=== PATIENT | male | born 1985 | race Caucasian/White ===

== ENCOUNTER 2022-06-16 19:31 | Inpatient (IN) | payer OTHER ==
[~2022-06-16] VITALS: Ht 180.3 cm; Wt 86.2 kg
[~2022-06-16 19:31] MED LIST: INSU-1163 SQ; LEVEMIR SUBQ
[2022-06-16 20:20] VITALS: BP 130/73
--- NOTE | 2022-06-16 20:23 | NUR ---
TO LOBBY A/W BED VIA W/C
--- NOTE | 2022-06-16 20:52 | NUR ---
AKIL Cortez examining patient.
--- NOTE | 2022-06-16 20:55 | NUR ---
PT TO BED 08 VIA W/C WITH AKIL SPIVEY
--- NOTE | 2022-06-16 21:03 | NUR ---
Dr. Gomez examining patient.
[2022-06-16] MEDS ORDERED: ONDANSETRON 4 MG/2 ML VIAL IVP ONE (21:05)
[2022-06-16] MEDS ORDERED: NACL 0.9% 1,000 ML IV ONE (21:10)
--- NOTE | 2022-06-16 21:13 | NUR ---
X-Ray at bedside.
--- NOTE | 2022-06-16 21:18 | NUR ---
COVID-19 swab collected and sent to lab.
[2022-06-16 21:24] LABS: BASOPHILS % (AUTO) 0.2 % (0.0-2.0); HEMATOCRIT 22.9 % (36-52); LYMPHOCYTES # (AUTO) 0.7 K/uL (2.0-11.5); LYMPHOCYTES % (AUTO) 5.4 % (20.5-51.1); MEAN CORPUSCULAR HEMOGLOBIN 27 pg (27-31); MEAN CORPUSCULAR HGB CONC 30 g/dL (33-37); MEAN CORPUSCULAR VOLUME 87.2 fL (80-94); MONOCYTES # (AUTO) 0.5 K/uL (0.8-1.0); NEUTROPHILS # (AUTO) 11.9 K/uL (1.8-7.7); NEUTROPHILS % (AUTO) 90.4 % (42.2-75.2); PLATELET COUNT (AUTO) 231 K/uL (140-450); RED BLOOD CELL COUNT(AUTO) 2.62 MIL/uL (4.20-6.10); RED CELL DISTRIBUTION WIDTH 16.7 % (11.6-13.7); WHITE BLOOD COUNT (AUTO) 13.2 K/uL (4.8-10.8)
[2022-06-16] MEDS ORDERED: MAG SULF 2000 MG/WATER PREMIX 50 ML IV PRN (21:30)
[2022-06-16] MEDS ORDERED: VANCOMYCIN PER PHARMACY MC PRN (21:30)
[2022-06-16] MEDS ORDERED: ZOLPIDEM 10 MG TAB PO PRN (21:30)
[2022-06-16] MEDS ORDERED: ONDANSETRON 4 MG/2 ML VIAL IVP PRN (21:30)
[2022-06-16] MEDS ORDERED: ACETAMINOPHEN 325 MG TAB PO PRN (21:30)
[2022-06-16] MEDS ORDERED: LORazepam 2 MG/ML VIAL IVP PRN (21:30)
[2022-06-16] MEDS ORDERED: DOCUSATE SODIUM 100 MG GELCAP PO PRN (21:30)
[2022-06-16] MEDS ORDERED: POTASSIUM CHLORIDE 10 MEQ TABER PO PRN (21:30)
[2022-06-16] MEDS ORDERED: DEXTROSE 50% 50 ML SYR IVP PRN (21:30)
--- NOTE | 2022-06-16 21:41 | NUR ---
Patient taken to CT scan via gurney.
[2022-06-16 21:43] LABS: ANION GAP 16.3 (8-16); CARBON DIOXIDE 25.3 mmol/L (21-32); CREATININE 2.4 mg/dL (0.6-1.3); POTASSIUM 5.6 mmol/L (3.5-5.1); TOTAL BILIRUBIN 0.4 mg/dL (0.0-1.0)
--- NOTE | 2022-06-16 21:50 | NUR ---
Patient returned back from CT scan.
[2022-06-16 21:56] LABS: PROTHROMBIN TIME 11.5 secs (10.8-13.4)
--- NOTE | 2022-06-16 21:59 | NUR ---
photos taken of alexander
[2022-06-16] MEDS: INSULIN LISPRO SLIDING SCALE 100 UNITS/ML VIAL SUBQ PRN (22:09)
[2022-06-16] MEDS ORDERED: PIPERACILLIN/TAZOBACTAM 2.25 GM in DEXTROSE 5% 50 ML IV SCH (22:10)
--- NOTE | 2022-06-16 22:43 | NUR ---
Patient will be admitted to care of Dr. Mckeon. Admited to telemetry. Will go to room 125B. Belongings list completed. Report to TYLER Aguirre. pictures taken however unable to print due to printer error.
[2022-06-16] MEDS ORDERED: VANCOMYCIN 1GM/DEXT 5% PREMIX 200 ML IV SCH (23:00)
--- NOTE | 2022-06-16 23:10 | NUR ---
BS 594, after given Humulog 18 units SUQ.
--- NOTE | 2022-06-16 23:20 | NUR ---
RECEIVED PT FROM ER ADMITTED TO 125B VIA [facility]. AWAKE, ALERT X 2 AND VERBALLY RESPONSIVE. PT IS ADMITTED WITH CHIEF COMPLAINTS OF 5 DAYS PROGRESSIVE WORSENING, NON RADIATING DIFFUSE OF RIGHT FOOT PAIN WITH REDNESS, SWELLING AND DISCHARGE. PT IS WITH DIAGNOSIS OF DIABETIC ULCER. NO KNOWN ALLERGY AND IS A FULL CODE. DIET IS CONSISTENT CARB 60GM WITH GLUCOSE CHECK ACHS. IV SITE IS ON RIGHT AC 20G AND IS ON SALINE LOCK.
--- NOTE | 2022-06-16 23:29 | NUR ---
Several attempted to print photos via printer in ER and ICU, not success.
[2022-06-17] VITALS (8 sets, daily range): BP systolic 107–140; BP diastolic 71–92
--- NOTE | 2022-06-17 00:09 | NUR ---
photos printed and given to admit nurse
--- NOTE | 2022-06-17 00:15 | NUR ---
CHECKED BLOOD SUGAR = 502, REPORTED TO DR. ROBERSON, NO NEW ORDER.
--- NOTE | 2022-06-17 02:55 | NUR ---
CARRY ORDER FOR BLOOD TRANSFUSION. PRE BLOOD TRANSFUSION, CHECKED V/S: BP115/63, T98.2, HR102, R18. PT DENIES OF PAIN.
--- NOTE | 2022-06-17 03:10 | NUR ---
BLOOD TRANSFUSION STARTS, PT IS AWAKE AND ALERT. PT NOTED MOANING BUT DENIED OF HAVING ANY PAIN, PT REFUSE ANY PAIN MEDICATION OFFERED.
--- NOTE | 2022-06-17 03:40 | NUR ---
BLOOD SUGAR CHECKED = 501. DR. ROBERSNO ORDER TO ADMINISTER ADDITIONAL 10 UNITS OF HUMOLOG INSULIN. ORDER CARRY OUT.
[2022-06-17] MEDS ORDERED: PIPERACILLIN/TAZOBACTAM 2.25 GM VIAL IV ONE ×2 (04:39→21:40)
--- NOTE | 2022-06-17 05:25 | NUR ---
BLOOD TRANSFUSION COMPLETED AT 0525, NO SIDE REACTION.
[2022-06-17] MEDS: PIPERACILLIN/TAZOBACTAM 2.25 GM in DEXTROSE 5% 50 ML IV SCH ×3 (05:43→21:43)
[2022-06-17] MEDS: BLOOD GLUCOSE MONITORING 1 DEV DEV FS SCH ×4 (06:59→20:57)
--- NOTE | 2022-06-17 07:00 | NUR ---
BLOOD SUGAR CHECKED = 452 =18 UNITS HUMOLOG INSULIN ADMINISTERED.
[2022-06-17] MEDS: INSULIN LISPRO SLIDING SCALE 100 UNITS/ML VIAL SUBQ PRN ×4 (07:33→20:57)
--- NOTE | 2022-06-17 07:36 | NUR ---
got report from the night nurse, pt sleeping, no sob.[email or web address]
[2022-06-17] MEDS ORDERED: SODIUM ZIRCONIUM CYCLOSILICATE 10 GM POWD.PACK PO SCH (07:45)
[2022-06-17] MEDS: NACL 0.9% 1,000 ML IV SCH ×3 (07:54→20:50)
[2022-06-17 07:58] LABS: BASOPHILS % (AUTO) 0.2 % (0.0-2.0); EOSINOPHILS # (AUTO) 0.1 K/uL (0-0.4); EOSINOPHILS % (AUTO) 0.6 % (0.0-4.0); HEMATOCRIT 21.5 % (36-52); LYMPHOCYTES # (AUTO) 0.9 K/uL (2.0-11.5); LYMPHOCYTES % (AUTO) 8.1 % (20.5-51.1); MEAN CORPUSCULAR HEMOGLOBIN 27 pg (27-31); MEAN CORPUSCULAR HGB CONC 32 g/dL (33-37); MEAN CORPUSCULAR VOLUME 83.2 fL (80-94); MONOCYTES # (AUTO) 1.3 K/uL (0.8-1.0); MONOCYTES % (AUTO) 11.6 % (1.7-9.3); NEUTROPHILS # (AUTO) 8.9 K/uL (1.8-7.7); NEUTROPHILS % (AUTO) 79.5 % (42.2-75.2); PLATELET COUNT (AUTO) 173 K/uL (140-450); RED BLOOD CELL COUNT(AUTO) 2.59 MIL/uL (4.20-6.10); RED CELL DISTRIBUTION WIDTH 16.1 % (11.6-13.7); WHITE BLOOD COUNT (AUTO) 11.2 K/uL (4.8-10.8)
[2022-06-17] MEDS: INSULIN LANTUS 100 UNITS/ML 10 ML VIAL SUBQ SCH (08:03)
[2022-06-17 08:10] LABS: ANION GAP 8.9 (8-16); CARBON DIOXIDE 30.8 mmol/L (21-32); CREATININE 1.9 mg/dL (0.6-1.3); POTASSIUM 4.7 mmol/L (3.5-5.1)
[2022-06-17 08:16] LABS: HEMOGLOBIN 6.9 g/dL (12.0-18.0)
[2022-06-17 08:20] LABS: BASOPHILS % (AUTO) 0.2 % (0.0-2.0); EOSINOPHILS % (AUTO) 0.4 % (0.0-4.0); HEMATOCRIT 21.5 % (36-52); HEMOGLOBIN 7.1 g/dL (12.0-18.0); LYMPHOCYTES # (AUTO) 0.8 K/uL (2.0-11.5); LYMPHOCYTES % (AUTO) 8.4 % (20.5-51.1); MEAN CORPUSCULAR HEMOGLOBIN 27 pg (27-31); MEAN CORPUSCULAR HGB CONC 33 g/dL (33-37); MEAN CORPUSCULAR VOLUME 83.4 fL (80-94); MONOCYTES # (AUTO) 0.6 K/uL (0.8-1.0); MONOCYTES % (AUTO) 6.1 % (1.7-9.3); NEUTROPHILS # (AUTO) 8.4 K/uL (1.8-7.7); NEUTROPHILS % (AUTO) 84.9 % (42.2-75.2); PLATELET COUNT (AUTO) 183 K/uL (140-450); RED BLOOD CELL COUNT(AUTO) 2.58 MIL/uL (4.20-6.10); RED CELL DISTRIBUTION WIDTH 15.9 % (11.6-13.7); WHITE BLOOD COUNT (AUTO) 9.9 K/uL (4.8-10.8)
[2022-06-17 08:25] LABS: ANION GAP 8.4 (8-16); CARBON DIOXIDE 31.2 mmol/L (21-32); POTASSIUM 4.6 mmol/L (3.5-5.1)
--- NOTE | 2022-06-17 09:13 | NUR ---
PATIENT HAS BEEN SCREENED AND CATEGORIZED HIGH NUTRITION RISK. PATIENT WILL BE SEEN WITHIN 1-2 DAYS OF ADMISSION. FNS CONSULT RECEIVED FOR MARGY 12 OR LOWER ON 06/17/22. REVIEWED BY MCKAYLA PEDROZA RD
[2022-06-17] MEDS ORDERED: VANCOMYCIN 1.25GM PREMIX 250 ML IV SCH (10:00)
[2022-06-17] MEDS ORDERED: VANCOMYCIN HCL 1.25 GM in DEXTROSE 5% 250 ML IV SCH (10:00)
--- NOTE | 2022-06-17 11:25 | NUR ---
BLOOD SUGAR UNABLE TO CHART IN E-MAR, NOW PT BLOOD SUGAR IS 347 WILL COVER ACCORDING TO THE SLIDING SCALE.[email or web address]
--- NOTE | 2022-06-17 11:27 | NUR ---
FOR THE BS OF 347 COVERED PT WITH 8 UNIT OF HUMOLOG /[email or web address]
[2022-06-17] MEDS ORDERED: BLOOD GLUCOSE MONITORING 1 DEV DEV FS SCH (13:00)
[2022-06-17] MEDS ORDERED: CLINDAMYCIN 900MG/D5W PM 50 ML IV SCH (13:00)
--- NOTE | 2022-06-17 13:19 | NUR ---
DR. LYNNE IN TO SEE PT, ORDERED CONSENT FOR SURGERY OF RIGHT LOWER EXTREMITY, NOTIFIED DR. ROBERSON AND DR. DREW FOR PENDING CARDIAC CLEARANCE. CONSENT IS SIGNED.
--- NOTE | 2022-06-17 14:58 | NUR ---
PT LEFT TO OR, ALERT.WILL BE GOING TO ICU FROM THE SURGERY.[email or web address]
[2022-06-17] MEDS ORDERED: HYDROmorphone 1 MG/ML AMP IVP PRN (15:05)
[2022-06-17] MEDS ORDERED: ONDANSETRON 4 MG/2 ML VIAL IVP PRN (15:05)
[2022-06-17] MEDS ORDERED: BUPIVACAINE-MPF 0.5% 30 ML VIAL INJ ONE (15:08)
[2022-06-17] MEDS ORDERED: fentaNYL citrate 0.05 MG/ML VIAL ONE (15:09)
--- NOTE | 2022-06-17 15:12 | NUR ---
06/17/22 RD INITIAL ASSESSMENT COMPLETED PLEASE REFER TO NUTRITION ASSESSMENT UNDER CARE ACTIVITY FOR ESTIMATED NUTRITIONAL NEEDS. 1. MONITOR NPO STATUS 2. WHEN/IF MEDICALLY APPROPRIATE, RECOMMEND [id number] DIET WITH PROSOURCE BID (PROVIDES 120 KCAL AND 30 GM PROTEIN DAILY) FOR WOUND SUPPORT 3. MONITOR NUTRITION RELATED LAB VALUES 4. RD TO FOLLOW-UP 3-5 DAYS, MODERATE RISK REVIEWED BY MCKAYLA PEDROZA RD
[2022-06-17] MEDS ORDERED: LIDOCAINE 1% 500 MG/50 ML VIAL ONE (15:21)
[2022-06-17] MEDS ORDERED: DESFLURANE 240 ML BTL INH ONE (15:28)
[2022-06-17] MEDS ORDERED: HYDROGEN PEROXIDE 3% 240 ML BTL TP ONE (15:32)
[2022-06-17] MEDS ORDERED: PROPOFOL 200 MG/20 ML VIAL IV ONE (15:45)
[2022-06-17] MEDS ORDERED: ONDANSETRON 4 MG/2 ML VIAL ONE (15:45)
[2022-06-17] MEDS ORDERED: HYDROmorphone PFS 2 MG/ML SYR ONE (15:48)
--- NOTE | 2022-06-17 16:50 | NUR ---
RECEIVED REPORT FROM JOEY SCOTT. PT TRANSFERRED TO ICU 7 FROM OR. S/P RIGHT FOOT AMPUTATION, DRESSING CLEAN INTACT. PT AROUSABLE, AOX4, FOLLOWS COMMANDS. NO C/O PAIN, NO SOB ON 2L, SATURATING WELL
--- NOTE | 2022-06-17 17:25 | NUR ---
1 UNIT PRBC TRANSFUSION STARTED
[2022-06-17 18:04] LABS: BARBITURATE, URINE NEGATIVE ng/ml (NEG <=200); BENZODIAZEPINE, URINE NEGATIVE ng/mL (NEG <=200); CANNABINOID, URINE NEGATIVE ng/mL (NEG <=50); COCAINE, URINE NEGATIVE ng/mL (NEG <=300); OPIATE, URINE NEGATIVE ng/mL (NEG <=2000); PHENCYCLIDINE SCREEN,URINE NEGATIVE ng/mL (NEG <=25)
--- NOTE | 2022-06-17 19:03 | NUR ---
REPORT GIVEN TO JOHNSON SCOTT. TRANSFUSION ONGOING, NO ADVERSE REACTIONS NOTED
[2022-06-17 19:10] LABS: ANION GAP 7.6 (8-16); CARBON DIOXIDE 30.4 mmol/L (21-32)
[2022-06-17 19:29] LABS: CREATININE 1.6 mg/dL (0.6-1.3)
[2022-06-17] MEDS: MORPHINE SULFATE 2 MG/ML SYR IVP PRN (19:41)
[2022-06-17 22:47] LABS: CARBON DIOXIDE 30.8 mmol/L (21-32); CREATININE 1.5 mg/dL (0.6-1.3); POTASSIUM 3.8 mmol/L (3.5-5.1)
--- NOTE | 2022-06-17 23:50 | NUR ---
RECEIVED REPORT FROM NURSE ORNELAS FOR CONTINUITY OF CARE. PT IS AAOX4. PT IS NOT NC 2L NOT IN ANY DISTRESS. PT IS S/P RIGHT FOOT AMPUTATION. PT HAS BILATERAL IV ON AC 20 GAUGE. RUNNING NS 150 ON LEFT AC. SAFETY PRECAUTIONS TAKEN. CALL LIGHT WITHIN REACH. WILL CONTINUE TO MONITOR.
[2022-06-18] VITALS: BP 134/85
[2022-06-18] MEDS: MORPHINE SULFATE 2 MG/ML SYR IVP PRN ×5 (00:42→19:58)
[2022-06-18 01:02] LABS: ANION GAP 5.7 (8-16); CARBON DIOXIDE 32.1 mmol/L (21-32); CREATININE 1.4 mg/dL (0.6-1.3); POTASSIUM 3.8 mmol/L (3.5-5.1)
[2022-06-18] MEDS: NACL 0.9% 1,000 ML IV SCH ×4 (03:35→23:35)
[2022-06-18 04:00] VITALS: BP 136/91
[2022-06-18] MEDS ORDERED: PIPERACILLIN/TAZOBACTAM 2.25 GM VIAL IV ONE (04:34)
[2022-06-18] MEDS: PIPERACILLIN/TAZOBACTAM 2.25 GM in DEXTROSE 5% 50 ML IV SCH ×3 (04:44→20:37)
--- NOTE | 2022-06-18 04:45 | NUR ---
SCHEDULE MEDICATION GIVEN. NO ADVERSE REACTION NOTED. WILL CONTINUE TO MONITOR THE PT.
[2022-06-18 05:50] LABS: CARBON DIOXIDE 29.9 mmol/L (21-32); CREATININE 1.3 mg/dL (0.6-1.3); POTASSIUM 3.9 mmol/L (3.5-5.1)
[2022-06-18 05:51] LABS: CARBON DIOXIDE 28.9 mmol/L (21-32); CREATININE 1.3 mg/dL (0.6-1.3); POTASSIUM 3.9 mmol/L (3.5-5.1)
[2022-06-18 05:54] LABS: BASOPHILS # (AUTO) 0.1 K/uL (0.00-0.22); BASOPHILS % (AUTO) 0.6 % (0.0-2.0); EOSINOPHILS # (AUTO) 0.2 K/uL (0-0.4); EOSINOPHILS % (AUTO) 1.8 % (0.0-4.0); LYMPHOCYTES # (AUTO) 0.8 K/uL (2.0-11.5); LYMPHOCYTES % (AUTO) 8.4 % (20.5-51.1); MEAN CORPUSCULAR HEMOGLOBIN 28 pg (27-31); MEAN CORPUSCULAR HGB CONC 34 g/dL (33-37); MEAN CORPUSCULAR VOLUME 82.7 fL (80-94); MONOCYTES # (AUTO) 1.2 K/uL (0.8-1.0); MONOCYTES % (AUTO) 12.6 % (1.7-9.3); NEUTROPHILS # (AUTO) 7.3 K/uL (1.8-7.7); NEUTROPHILS % (AUTO) 76.6 % (42.2-75.2); PLATELET COUNT (AUTO) 151 K/uL (140-450); RED BLOOD CELL COUNT(AUTO) 2.23 MIL/uL (4.20-6.10); RED CELL DISTRIBUTION WIDTH 15.3 % (11.6-13.7); WHITE BLOOD COUNT (AUTO) 9.5 K/uL (4.8-10.8)
[2022-06-18 06:07] LABS: HEMATOCRIT 18.5 % (36-52); HEMOGLOBIN 6.2 g/dL (12.0-18.0)
[2022-06-18] MEDS: INSULIN LISPRO SLIDING SCALE 100 UNITS/ML VIAL SUBQ PRN ×3 (06:38→17:50)
[2022-06-18] MEDS: BLOOD GLUCOSE MONITORING 1 DEV DEV FS SCH ×4 (06:39→20:34)
--- NOTE | 2022-06-18 07:10 | NUR ---
ENDORSED PT TO DAY SHIFT RN FOR CONTINUITY OF CARE. PT IS STABLE.
[2022-06-18 08:00] VITALS: BP 133/89
[2022-06-18 08:29] LABS: ANION GAP 6.7 (8-16); CARBON DIOXIDE 30.1 mmol/L (21-32); CREATININE 1.3 mg/dL (0.6-1.3); POTASSIUM 3.8 mmol/L (3.5-5.1)
[2022-06-18] MEDS ORDERED: VANCOMYCIN 1.25GM PREMIX 250 ML IV SCH (09:00)
[2022-06-18] MEDS: INSULIN LANTUS 100 UNITS/ML 10 ML VIAL SUBQ SCH (11:01)
--- NOTE | 2022-06-18 11:07 | NUR ---
WOUND CARE NOTE: SKIN ASSESSMENT DONE WITH THIS 36 Y/O PT. AAX4. VERBALIZES UNDERSTANDING. S/P RIGHT BKA DONE WITH DR. LYNNE YESTERDAY, DRESSING DCI. PT. ADMITTED WITH MULTIPLE UN-STAGEABLE PI. PER PT. HE IS AWARE OF THE SKIN ISSUES. POC DISCUSSED WITH PT. PT. VERBALIZES UNDERSTANDING. POC DISCUSSED WITH PRIMARY RN LIN. PT. IS ABLE TO TURN AND REPOSITION BY HIMSELF, ENCOURAGE SHIFT WEIGHT AND TURNING FREQUENTLY. -BILATERAL BUTTOCK DTI 100 % MAROON 6X5CM -SACRAL COCCYX MULTIPLE BLOODY BLISTERING DENUDED SKIN FURTHER DAMAGE INDICATED, LARGEST BLISTERING SKIN 3X2CM -RIGHT BKA DONE LESS THAN 24H, DRESSING DCI -LEFT 2ND TOE S/P AMPUTATION OLD, HEALED SCAR LEFT PLANTAR DRY FISSURED SKIN -PRESSURE INJURY LEFT HEEL UN-STAGEABLE 4.5X3CM 100% BLACK STABLE ESCHAR TISSUE, NO ODOR, ЮЛИЯ-WOUND SKIN BLANCHABLE REDNESS. -PRESSURE INJURY LEFT LATERAL FOOT DTI 3.2X2CM 100% MAROON COLOR, ЮЛИЯ-WOUND SKIN BLANCHABLE REDNESS. RECOMMENDATIONS: -PLEASE FOLLOW DR. LYNNE ORDER FOR RIGHT BKA -CLEANSE SACRAL COCCYX AND BUTTOCKS WITH NS, PAT DRY APPLY OIL EMULSION DRESSING AND COVER WITH FOAM DRESSING QD AND PRN IF SOILING -APPLY SOAKED BETADINE 4X4 GAUZE TO LEFT PLANTAR, LEFT HEEL AND LEFT LATERAL FOOT, COVER WITH ABD PAD AND WRAP WITH KERLIX ROLL, SECURED WITH TAPE QD AND PRN IF SOILING -POSITIONING: TURN AND REPOSITION PATIENT Q 2H OR SOONER USE PILLOWS TO KEEP BONY PROMINENCES FROM DIRECT CONTACT WITH SURFACES USE REPOSITIONING WEDGES TO PROVIDE 30-DEGREE ANGLE FOR SIDE LYING POSITIONS OFFLOADING OR FOAM DRESSING TO ALL TUBING TO PREVENT MEDICAL DEVICES RELATED PRESSURE INJURY -RE-EVALUATING AND MANAGING INCONTINENCE MONITOR SKIN CONDITION DURING POSITION CHANGE DO NOT MASSAGE REDNESS, BONY PROMINENCES FREQUENT ЮЛИЯ-CARE AND PROVIDE BARRIER CREAMS PRN IF SOILING MOISTURE CONTROL BY OFFER BED PERKINS/URINAL /ABSORBENT PAD TO WICK AND HOLD MOISTURE KEEP SKIN DRY AND PROTECT FROM FRICTION -MANAGE FRICTION/SHEAR/MOBILITY KEEP HOB AT THE LOWEST LEVEL OF ELEVATION NO MORE THAN 30 DEGREE UNLESS OTHERWISE CONTRAINDICATED USE LIFT SHEET OR TRANSFER DEVICE TO MOVE PATIENT AND PREVENT LATERAL SHEER. PROTECT HEELS, ELBOWS BONY PROMINENCES WITH SKIN BERRIES OR FOAM DRESSING IF EXPOSED TO FRICTION OFFLOAD BILATERAL HEELS BY PLACING PILLOWS UNDER CALVES AT ALL TIMES, UNLESS OTHERWISE CONTRAINDICATED -PRESSURE REDISTRIBUTION SURFACE THERAPY DEJA ISOFLEX ELICEO MATTRESS -NUTRITION: PLEASE FOLLOW RD RECOMMENDATIONS AND OFFER NUTRITION SUPPLEMENTS IF ORDERED.
[2022-06-18 12:00] VITALS: BP 129/88
[2022-06-18] MEDS: GAUZE TP SCH (13:34)
[2022-06-18] MEDS: NON ADHERENT DRESSING TP SCH (13:35)
[2022-06-18 13:41] LABS: ANION GAP 4.5 (8-16); CARBON DIOXIDE 31.4 mmol/L (21-32); CREATININE 1.2 mg/dL (0.6-1.3); POTASSIUM 3.9 mmol/L (3.5-5.1)
[2022-06-18 16:00] VITALS: BP 136/80
--- NOTE | 2022-06-18 19:30 | NUR ---
BLOOD TRANSFUSION DONE. NO ADVERSE REACTION NOTED AT THIS TIME. WILL CONTINUE TO MONITOR.
--- NOTE | 2022-06-18 19:50 | NUR ---
PATIENT AWAKE ALERT VERBALLY RESPONSIVE ON ROOM AIR. NO SOB NOTED. ABLE TO COMMUNICATE WITH HIS NEEDS. IVF NS 150 INFUSING IN THE LEFT AC. COMPLAINED OF PAIN TO THE RIGHT FOOT. WILL MEDICATE. CALL LIGHT ON EASY REACH. SAFETY MEASURES ARE IN PLACE. VISITOR AT BEDSIDE.
[2022-06-18 20:00] VITALS: BP 130/93
--- NOTE | 2022-06-18 20:35 | NUR ---
CHECKED BLOOD SUGAR WAS 145. NO INSULIN COVERAGE NEEDED.
--- NOTE | 2022-06-18 20:37 | NUR ---
ZOSYN ADMINISTERED ORDERED.
[2022-06-19] VITALS: BP 145/89
[2022-06-19] MEDS: MORPHINE SULFATE 2 MG/ML SYR IVP PRN ×3 (00:52→17:40)
[2022-06-19 04:00] VITALS: BP 142/91
[2022-06-19] MEDS: PIPERACILLIN/TAZOBACTAM 2.25 GM in DEXTROSE 5% 50 ML IV SCH (05:18)
[2022-06-19 05:30] LABS: BASOPHILS % (AUTO) 0.4 % (0.0-2.0); EOSINOPHILS # (AUTO) 0.2 K/uL (0-0.4); EOSINOPHILS % (AUTO) 2.3 % (0.0-4.0); HEMATOCRIT 22.1 % (36-52); HEMOGLOBIN 7.3 g/dL (12.0-18.0); LYMPHOCYTES # (AUTO) 1.1 K/uL (2.0-11.5); LYMPHOCYTES % (AUTO) 11.5 % (20.5-51.1); MEAN CORPUSCULAR HEMOGLOBIN 27 pg (27-31); MEAN CORPUSCULAR HGB CONC 33 g/dL (33-37); MONOCYTES # (AUTO) 1.1 K/uL (0.8-1.0); MONOCYTES % (AUTO) 11.2 % (1.7-9.3); NEUTROPHILS # (AUTO) 7.4 K/uL (1.8-7.7); NEUTROPHILS % (AUTO) 74.6 % (42.2-75.2); PLATELET COUNT (AUTO) 170 K/uL (140-450); RED CELL DISTRIBUTION WIDTH 15.2 % (11.6-13.7); WHITE BLOOD COUNT (AUTO) 9.9 K/uL (4.8-10.8)
[2022-06-19 06:25] LABS: ANION GAP 5.9 (8-16); CARBON DIOXIDE 28.8 mmol/L (21-32); CREATININE 0.9 mg/dL (0.6-1.3); POTASSIUM 3.7 mmol/L (3.5-5.1)
[2022-06-19] MEDS: NACL 0.9% 1,000 ML IV SCH ×3 (06:35→17:35)
[2022-06-19] MEDS: BLOOD GLUCOSE MONITORING 1 DEV DEV FS SCH ×4 (06:36→20:39)
--- NOTE | 2022-06-19 07:15 | NUR ---
RECEIVED REPORT FROM LUCAS FOR CONTINUITY OF CARE. INITIAL ASSESSMENT DONE. IVF INFUSING WELL. NO C/O PAIN OR DISCOMFORT. CALL LIGHT KEPT WITHIN REACH. WILL CONTINUE TO MONITOR.
--- NOTE | 2022-06-19 07:16 | NUR ---
Report given to morning shift nurse for continuity of care.
[2022-06-19 08:00] VITALS: BP 124/66
--- NOTE | 2022-06-19 08:22 | NUR ---
UNDERSIGNED HEARD PT SCREAMING FOR HELP. IMMEDIATELY ANA TO PT ROOM. FOUND PT ON THE FLOOR , IN SITTING POSITION, HOLDING URINAL. ASSESSMENT DONE. AMBIKA CHECK. NEURO CHECK. ABLE TO MOVE BUE AND BLE WITHOUT DIFFICULTY. ASKED PT WHAT HAPPEN STATED "I WAS TRYING TO GET OUT OF BED AND SLID ON THE FLOOR." 4 STAFF ASSISTED PT BACK TO BED. PT COMPLAINT OF FOOT PAIN 09/27. NOT IN ANY DISTRESS NOTED. BED ALARM IN PLACED. DR. HOANG MADE AWARE. WILL CONTINUE TO MONITOR.
--- NOTE | 2022-06-19 08:38 | NUR ---
PRN MORPHINE IVP WAS GIVEN BY NAOMI SCOTT FOR PAIN MANAGEMENT. TOLERATING WELL.
[2022-06-19] MEDS: INSULIN LANTUS 100 UNITS/ML 10 ML VIAL SUBQ SCH (08:57)
--- NOTE | 2022-06-19 08:57 | NUR ---
BS CHECKED 151. SCHEDULED LANTUS 20 UNITS SQ WAS GIVEN. TOLERATING WELL.
[2022-06-19] MEDS ORDERED: VANCOMYCIN 1.25GM PREMIX 250 ML IV SCH (10:00)
--- NOTE | 2022-06-19 10:11 | NUR ---
MADE CLARIFICATION OF ORDER FOR GABAPENTIN TO DR. LYNNE. RECEIVED NEW ORDER GABAPENTIN 300 MG PO BID. NOTED AND CARRIED OUT.
--- NOTE | 2022-06-19 11:30 | NUR ---
SCHEDULED IV VANCOMYCIN WAS GIVEN BY KARISHMA SCOTT. TOLERATING WELL.
[2022-06-19 12:00] VITALS: BP 103/65
--- NOTE | 2022-06-19 12:14 | NUR ---
BC CHECKED 146. NO INSULIN COVERAGE NEEDED.
[2022-06-19] MEDS: NON ADHERENT DRESSING TP SCH (13:15)
[2022-06-19] MEDS: GAUZE TP SCH (13:15)
--- NOTE | 2022-06-19 14:15 | NUR ---
SCHEDULED IV ZOSYN WAS NOT GIVEN D/T MEDICATION D/C.
[2022-06-19 16:00] VITALS: BP 121/76
[2022-06-19] MEDS: INSULIN LISPRO SLIDING SCALE 100 UNITS/ML VIAL SUBQ PRN (17:26)
--- NOTE | 2022-06-19 17:26 | NUR ---
BS CHECKED 157. INSULIN WAS GIVEN PER SLIDING SCALE.
[2022-06-19] MEDS: AMPICILLIN 2,000 MG in NACL 0.9% 100 ML IV SCH ×2 (17:40→23:14)
--- NOTE | 2022-06-19 17:40 | NUR ---
IV AMPICILLIN AND PRN MORPHINE WAS GIVEN BY KARISHMA SCOTT. TOLERATING WELL.
[2022-06-19 20:00] VITALS: BP 122/77
[2022-06-19] MEDS: GABAPENTIN 300 MG CAP PO SCH (20:39)
--- NOTE | 2022-06-19 20:39 | NUR ---
CHECKED BLOOD SUGAR WAS 101. NO INSULIN COVERAGE NEEDED.
--- NOTE | 2022-06-19 21:30 | NUR ---
PATIENT AWAKE ALERT ORIENTED RESTING IN BED ON ROOM AIR. NO ACUTE DISTRESS NOTED. IVF NS INFUSING 150 ML/HR IN THE RIGHT AC. NO COMPLAINTS OF PAIN. ATTENDED TO HIS NEEDS. CALL LIGHT WITHIN REACH. SAFETY MEASURES IN PLACE. WILL CONTINUE TO MONITOR MPT.
[2022-06-20] VITALS: BP 127/73
[2022-06-20] MEDS: NACL 0.9% 1,000 ML IV SCH ×5 (02:15→22:15)
[2022-06-20 04:00] VITALS: BP 134/84
[2022-06-20] MEDS: AMPICILLIN 2,000 MG in NACL 0.9% 100 ML IV SCH ×4 (05:12→23:10)
--- NOTE | 2022-06-20 05:12 | NUR ---
AMPICILLIN IVPB ADMINISTERED ORDERED.
[2022-06-20] MEDS: BLOOD GLUCOSE MONITORING 1 DEV DEV FS SCH ×4 (06:34→20:38)
--- NOTE | 2022-06-20 06:38 | NUR ---
ALL NEEDS ATTENDED AND MET THROUGHOUT THE SHIFT. WILL ENDORSED TO THE NEXT SHIFT FOR CONTINUITY OF CARE PT STABLE
[2022-06-20 07:10] LABS: BASOPHILS % (AUTO) 0.4 % (0.0-2.0); EOSINOPHILS # (AUTO) 0.4 K/uL (0-0.4); EOSINOPHILS % (AUTO) 4.6 % (0.0-4.0); HEMATOCRIT 21.4 % (36-52); HEMOGLOBIN 7.1 g/dL (12.0-18.0); LYMPHOCYTES # (AUTO) 1.4 K/uL (2.0-11.5); LYMPHOCYTES % (AUTO) 17.5 % (20.5-51.1); MEAN CORPUSCULAR HEMOGLOBIN 27 pg (27-31); MEAN CORPUSCULAR HGB CONC 33 g/dL (33-37); MEAN CORPUSCULAR VOLUME 82.8 fL (80-94); MONOCYTES # (AUTO) 1.2 K/uL (0.8-1.0); NEUTROPHILS # (AUTO) 4.9 K/uL (1.8-7.7); NEUTROPHILS % (AUTO) 62.5 % (42.2-75.2); PLATELET COUNT (AUTO) 157 K/uL (140-450); RED BLOOD CELL COUNT(AUTO) 2.59 MIL/uL (4.20-6.10); RED CELL DISTRIBUTION WIDTH 15.3 % (11.6-13.7); WHITE BLOOD COUNT (AUTO) 7.9 K/uL (4.8-10.8)
[2022-06-20 07:13] LABS: ANION GAP 7.9 (8-16); CARBON DIOXIDE 28.7 mmol/L (21-32); CREATININE 0.9 mg/dL (0.6-1.3); POTASSIUM 3.6 mmol/L (3.5-5.1)
[2022-06-20 07:18] LABS: PHOSPHORUS 2.7 mg/dL (2.5-4.9)
--- NOTE | 2022-06-20 07:20 | NUR ---
GOT REPORT FROM THE NIGHT NURSE,PT SLEEPING NO SOB.[email or web address]
[2022-06-20 08:00] VITALS: BP 141/91
[2022-06-20] MEDS: INSULIN LANTUS 100 UNITS/ML 10 ML VIAL SUBQ SCH (09:04)
[2022-06-20] MEDS: GABAPENTIN 300 MG CAP PO SCH ×2 (09:07→20:36)
[2022-06-20 12:00] VITALS: BP 142/93
[2022-06-20] MEDS: NON ADHERENT DRESSING TP SCH (13:00)
[2022-06-20] MEDS: GAUZE TP SCH (13:00)
[2022-06-20] MEDS: MORPHINE SULFATE 2 MG/ML SYR IVP PRN (13:55)
[2022-06-20 16:00] VITALS: BP_SYST 119; BP_SYST 133; BP_DIAS 56; BP_DIAS 78
[2022-06-20 20:00] VITALS: BP 124/83
--- NOTE | 2022-06-20 20:05 | NUR ---
PATIENT WELL RESTED ON ROOM AIR. NO SOB NOTED. NO COMPLAINTS OF PAIN OR ANY DISCOMFORT. IVF INFUSING TO LEFT AC. ALL NEEDS ATTENDED AND MET. GIRLFRIEND AT BEDSIDE. WILL CONTINUE TO MONITOR.
[2022-06-20] MEDS: INSULIN LISPRO SLIDING SCALE 100 UNITS/ML VIAL SUBQ PRN (20:39)
--- NOTE | 2022-06-20 20:40 | NUR ---
BLOOD SUGAR CHECKED WAS 155. ADMINISTERED HUMALOG INSULIN ORDERED PER SLIDING SCALE.
[2022-06-21] VITALS: BP 124/81
[2022-06-21 04:00] VITALS: BP 142/96
[2022-06-21] MEDS: NACL 0.9% 1,000 ML IV SCH ×2 (04:55→11:56)
[2022-06-21] MEDS: MORPHINE SULFATE 2 MG/ML SYR IVP PRN ×4 (05:29→17:55)
[2022-06-21] MEDS: AMPICILLIN 2,000 MG in NACL 0.9% 100 ML IV SCH ×4 (05:53→23:32)
[2022-06-21] MEDS: BLOOD GLUCOSE MONITORING 1 DEV DEV FS SCH ×4 (06:36→21:13)
--- NOTE | 2022-06-21 06:36 | NUR ---
BLOOD SUGAR WAS 102. NO INSULIN COVERAGE NEEDED. PATIENT IS STABLE. WILL ENDORSED TO AM SHIFT NURSE FOR CONTINUITY OF CARE.
[2022-06-21 07:44] LABS: BASOPHILS % (AUTO) 0.4 % (0.0-2.0); EOSINOPHILS # (AUTO) 0.4 K/uL (0-0.4); EOSINOPHILS % (AUTO) 3.5 % (0.0-4.0); LYMPHOCYTES # (AUTO) 1.4 K/uL (2.0-11.5); LYMPHOCYTES % (AUTO) 11.9 % (20.5-51.1); MEAN CORPUSCULAR HEMOGLOBIN 28 pg (27-31); MEAN CORPUSCULAR HGB CONC 33 g/dL (33-37); MEAN CORPUSCULAR VOLUME 82.9 fL (80-94); MONOCYTES # (AUTO) 1.8 K/uL (0.8-1.0); MONOCYTES % (AUTO) 15.5 % (1.7-9.3); NEUTROPHILS % (AUTO) 68.7 % (42.2-75.2); PLATELET COUNT (AUTO) 138 K/uL (140-450); RED BLOOD CELL COUNT(AUTO) 2.33 MIL/uL (4.20-6.10); RED CELL DISTRIBUTION WIDTH 15.3 % (11.6-13.7); WHITE BLOOD COUNT (AUTO) 11.7 K/uL (4.8-10.8)
[2022-06-21 07:48] LABS: HEMATOCRIT 19.3 % (36-52); HEMOGLOBIN 6.4 g/dL (12.0-18.0)
[2022-06-21 07:52] VITALS: BP 151/102
[2022-06-21 08:09] LABS: ANION GAP 8.8 (8-16); CARBON DIOXIDE 26.1 mmol/L (21-32); CREATININE 0.8 mg/dL (0.6-1.3); POTASSIUM 3.9 mmol/L (3.5-5.1)
[2022-06-21 08:21] LABS: MAGNESIUM 1.7 mg/dL (1.8-2.4); PHOSPHORUS 2.6 mg/dL (2.5-4.9)
[2022-06-21] MEDS: GABAPENTIN 300 MG CAP PO SCH ×2 (08:38→21:11)
[2022-06-21] MEDS ORDERED: ONDANSETRON 4 MG/2 ML VIAL IVP PRN (09:10)
[2022-06-21] MEDS: INSULIN LANTUS 100 UNITS/ML 10 ML VIAL SUBQ SCH (09:49)
[2022-06-21] MEDS: INSULIN LISPRO SLIDING SCALE 100 UNITS/ML VIAL SUBQ PRN (11:48)
[2022-06-21 12:00] VITALS: BP 144/100
[2022-06-21] MEDS: NON ADHERENT DRESSING TP SCH (12:53)
[2022-06-21] MEDS: GAUZE TP SCH ×2 (12:53)
--- NOTE | 2022-06-21 15:44 | NUR ---
06/21/22 RD FOLLOW UP COMPLETED PLEASE REFER TO NUTRITION ASSESSMENT UNDER CARE ACTIVITY FOR ESTIMATED NUTRITIONAL NEEDS. 1. CONTINUE [id number] DIET WITH PROSOURCE BID TOLERATED - PROVIDES 120 KCAL AND 30 GM PROTEIN DAILY 2. PROVIDED NUTRITION EDUCATION AND HANDOUTS ON CARBOHYDRATE COUNTING AND HEALTHY EATING TIPS 3. RD TO FOLLOW-UP 7 DAYS, LOW RISK REVIEWED BY MCKAYLA PEDROZA RD
[2022-06-21 16:00] VITALS: BP 124/74
--- NOTE | 2022-06-21 16:09 | NUR ---
MESSAGE TO DOCTOR OH FOR CONSULTATION REGARDING RIGHT LOWER EXTREMITY.
--- NOTE | 2022-06-21 19:20 | NUR ---
RECEIVED REPORT FROM AM SHIFT NURSE. PATIENT SLEEPING IN NO ACUTE DISTRESS NOTED. BREATHING NORMAL WITH SYMMETRICAL RISE AND FALL OF THE CHEST. NO COMPLAINTS OF PAIN AT THIS TIME. CALL LIGHT ON EASY REACH. BED WHELLS LOCKED IN LOW POSITION. IV ACCESS TO LEFT AND RIGHT AC INTACT AND PATENT SALINE LOCK.
[2022-06-21 20:00] VITALS: BP 120/72
--- NOTE | 2022-06-21 21:11 | NUR ---
DUE MEDS GIVEN PER MD ORDER.
[2022-06-22] VITALS: BP 112/80
[2022-06-22] MEDS: MORPHINE SULFATE 2 MG/ML SYR IVP PRN ×4 (00:10→17:48)
[2022-06-22 04:00] VITALS: BP 127/85
[2022-06-22] MEDS: AMPICILLIN 2,000 MG in NACL 0.9% 100 ML IV SCH ×4 (06:21→23:24)
[2022-06-22] MEDS: BLOOD GLUCOSE MONITORING 1 DEV DEV FS SCH ×4 (06:43→20:06)
--- NOTE | 2022-06-22 06:43 | NUR ---
BLOOD SUGAR WAS 142 NO INSULIN COVERAGE NEEDED.
--- NOTE | 2022-06-22 07:04 | NUR ---
ENDORSED TO DAY SHIFT NURSE SHADE FOR CONTINUITY OF CARE.
[2022-06-22 08:00] VITALS: BP_SYST 149; BP_SYST 150; BP_DIAS 88; BP_DIAS 91
--- NOTE | 2022-06-22 08:17 | NUR ---
DC PLANNING ASSESSMENT COMPLETE PLEASE REFER TO ASSESSMENT FOR ADDITIONAL DETAILS PT REPORTS DC PLAN IS TO RETURN HOME WITH HIS PARTNER PROVIDING TRANSPORTATION WHEN MEDICALLY STABLE. Addendum: 06/22/22 at 0818 by Valorie SOW Amended: Links added.
[2022-06-22] MEDS: INSULIN LANTUS 100 UNITS/ML 10 ML VIAL SUBQ SCH (08:59)
[2022-06-22] MEDS: GABAPENTIN 300 MG CAP PO SCH ×2 (09:00→20:48)
[2022-06-22 11:24] LABS: BASOPHILS # (AUTO) 0.1 K/uL (0.00-0.22); BASOPHILS % (AUTO) 0.6 % (0.0-2.0); EOSINOPHILS # (AUTO) 0.4 K/uL (0-0.4); EOSINOPHILS % (AUTO) 3.1 % (0.0-4.0); LYMPHOCYTES # (AUTO) 1.6 K/uL (2.0-11.5); LYMPHOCYTES % (AUTO) 12.5 % (20.5-51.1); MEAN CORPUSCULAR HEMOGLOBIN 27 pg (27-31); MEAN CORPUSCULAR HGB CONC 32 g/dL (33-37); MEAN CORPUSCULAR VOLUME 83.8 fL (80-94); MONOCYTES # (AUTO) 1.9 K/uL (0.8-1.0); MONOCYTES % (AUTO) 15.1 % (1.7-9.3); NEUTROPHILS # (AUTO) 8.6 K/uL (1.8-7.7); NEUTROPHILS % (AUTO) 68.7 % (42.2-75.2); PLATELET COUNT (AUTO) 175 K/uL (140-450); RED BLOOD CELL COUNT(AUTO) 2.37 MIL/uL (4.20-6.10); RED CELL DISTRIBUTION WIDTH 15.2 % (11.6-13.7); WHITE BLOOD COUNT (AUTO) 12.5 K/uL (4.8-10.8)
--- NOTE | 2022-06-22 11:40 | NUR ---
DC PLANNING A 36 YEAR OLD MALE PATIENT ADMITTED 06/16 FOR NECROTIZING FASCITIS RIGHT FOOT/LEG.S/P RIGHT BKA 06/17/22.ON INSULIN SLIDING SCALE.HAD 3 UNITS BT BUT HGB STILL LESS THAN 7.0. MIGHT NEED MORE.ON AMPICILLIN. WOUND CARE,PODIATRY,CARDIO AND I&D FOLLOWING.FOR TRANSFER TO [facility] FOR WOUND CARE.MIGHT NEED BKA REVISION IN THE FUTURE.SURGERY CONSULT PENDING.REQUEST FOR MED-SURG BED AT [facility] INITIATED. ON ROOM AIR.CM TO FOLLOW. Addendum: 06/22/22 at 1239 by VIDA CHANDLER CM DC PLANNING PATIENT UPDATED PLAN TO BE TRANSFERRED TO [facility] BUT REFUSING TO GO AND WANTS TO GO HOME INSTEAD. DC PLAN- TENTATIVE PENDING COMPLETION OF ANTIBIOTIC PER .WILL ARRANGE FOR HOME HEALTH NURSE WHEN PT IS READY TO GO HOME.CM TO FOLLOW. Addendum: 06/24/22 at 1205 by VIDA CHANDLER CM DC PLANNING PATIENT IS FOR DISCHARGED.[facility] TO SEE PATIENT FOR WOUND CARE.STABLE TO GO HOME.
[2022-06-22 11:46] LABS: HEMATOCRIT 19.9 % (36-52); HEMOGLOBIN 6.4 g/dL (12.0-18.0)
[2022-06-22 12:00] VITALS: BP 150/88
[2022-06-22] MEDS: NON ADHERENT DRESSING TP SCH (13:00)
[2022-06-22] MEDS: GAUZE TP SCH (13:00)
[2022-06-22 16:00] VITALS: BP 113/72
--- NOTE | 2022-06-22 16:33 | NUR ---
BLOOD TRANSFUSION STARTED PATIENT INFORMED OF SIDE EFFECTS TO LOOK OUT FOR
--- NOTE | 2022-06-22 16:57 | NUR ---
AFTER 15 MINS OF BLOOD TRANSFUSION PATIENT DENIES ANY BACK PAIN, FEVER OR CHILLS, BLOOD TRANSFUSION RATE INCREASED
--- NOTE | 2022-06-22 18:59 | NUR ---
BLOOD TRANSFUSION COMPLETED AT 1855 PATIENT TOLERATED WELL NO REACTION NOTED
--- NOTE | 2022-06-22 19:30 | NUR ---
RECEIVED REPORT FROM DAY SHIFT NURSE SHADE FOR CONTINUITY OF CARE. PATIENT IS A&O X4. PATIENT IS ON ROOM AIR, BREATHING IS NORMAL WITH SYMMETRICAL RISE AND FALL OF CHEST. IV IS A 20G LAC, AND A 20G RAC; CURRENTLY RUNNING NO FLUIDS (SALINE LOCKED). PATIENT IS LYING IN HIGH-FOWLERS POSITION. BED IS IN LOWEST POSITION, WHEELS LOCKED, CALL LIGHT IN PLACE. WILL CONTINUE TO OBSERVE PATIENT.
[2022-06-22 20:00] VITALS: BP 134/71
[2022-06-22 21:49] LABS: RED BLOOD CELL COUNT(AUTO) 2.42 MIL/uL (4.20-6.10); WHITE BLOOD COUNT (AUTO) 12.3 K/uL (4.8-10.8)
[2022-06-22 21:50] LABS: HEMATOCRIT 20.3 % (36-52); HEMOGLOBIN 6.9 g/dL (12.0-18.0); MEAN CORPUSCULAR HEMOGLOBIN 28 pg (27-31); MEAN CORPUSCULAR HGB CONC 34 g/dL (33-37); MEAN CORPUSCULAR VOLUME 84.1 fL (80-94); NEUTROPHILS % (AUTO) 66.6 % (42.2-75.2); PLATELET COUNT (AUTO) 173 K/uL (140-450)
[2022-06-22 21:51] LABS: BASOPHILS % (AUTO) 0.4 % (0.0-2.0); EOSINOPHILS # (AUTO) 0.4 K/uL (0-0.4); LYMPHOCYTES # (AUTO) 1.6 K/uL (2.0-11.5); MONOCYTES # (AUTO) 2.1 K/uL (0.8-1.0); NEUTROPHILS # (AUTO) 8.2 K/uL (1.8-7.7)
--- NOTE | 2022-06-22 22:23 | NUR ---
RECEIVED CRITICAL LAB H&H; HEMOGLOBIN 6.9, HEMATOCRIT 20.3. MESSAGED DR. JENNIFER MOREIRA ORDERED ONE MORE UNIT OF BLOOD TO BE GIVEN. PUT ORDER INTO COMPUTER. WILL ADMINISTER WHEN BLOOD IS READY.
--- NOTE | 2022-06-23 01:30 | NUR ---
WOKE PATIENT UP AND ASKED IF I COULD LOOK OVER HIS WOUNDS. PATIENT REFUSED, STATING NO AND THAT THEY ALREADY LOOKED AT HIS WOUNDS AND DID A DRESSING CHANGE DURING THE DAY; AND THAT HE'S FINE. I TOLD THE PATIENT OKAY AND INFORMED HIM THAT I WOULD BE BACK IN A FEW MINUTES TO CHECK HIS VITALS BECAUSE HIS BLOOD IS STILL LOW AND WE NEED TO TRANSFUSE ANOTHER UNIT. HE STATED OKAY.
[2022-06-23] MEDS: MORPHINE SULFATE 2 MG/ML SYR IVP PRN ×3 (02:41→18:29)
--- NOTE | 2022-06-23 02:47 | NUR ---
PATIENT'S BLOOD WAS PICKED UP AT LAB. STARTED BLOOD TRANSFUSION AT 0205. PATIENT'S PRE-TRANSFUSION VITALS WERE: BP 121/70, HR 100, RR 18, TEMP 97.8. BLOOD ENTERED PATIENT'S VEIN AT 0211; OBTAINED INTRA-FUSION VITALS AT 0226, VITALS WERE: BP 137/81, HR 104, TEMP 97.1, RR18. PATIENT IS AWAKE, SITTING UP, TOLERATING BLOOD WELL. WILL CONTINUE TO OBSERVE PATIENT.
[2022-06-23 04:00] VITALS: BP 124/83
--- NOTE | 2022-06-23 05:36 | NUR ---
PATIENT'S BLOOD FINISHED AT 0500 WITHOUT ANY INTERRUPTIONS. POST TRANSFUSION VITALS WERE: TEMP 98.4, HR 100, BP 124/83, RR 18. PATIENT IS SITTING UP IN HIGH-FOWLERS POSITION. PATIENT HAS EATEN NON HOSPITAL FOOD OFF AND ON THROUGHOUT THE NIGHT (TAKE OUT FOOD FROM EARLIER IN THE DAY). H&H ORDER WAS PUT IN, TO BE DRAWN AT 0700. PATIENT'S BREATHING IS NORMAL WITH SYMMETRICAL RISE AND FALL OF CHEST. WILL CONTINUE TO OBSERVE PATIENT.
[2022-06-23] MEDS: AMPICILLIN 2,000 MG in NACL 0.9% 100 ML IV SCH ×3 (06:37→17:53)
[2022-06-23] MEDS: BLOOD GLUCOSE MONITORING 1 DEV DEV FS SCH ×4 (06:48→21:00)
[2022-06-23] MEDS: INSULIN LISPRO SLIDING SCALE 100 UNITS/ML VIAL SUBQ PRN ×3 (06:49→16:30)
--- NOTE | 2022-06-23 07:03 | NUR ---
Patient's Plan of Care was discussed and reviewed with BALL ASSEMBLER: [] Deni Bryant
[2022-06-23 07:04] LABS: HEMATOCRIT 23.3 % (36-52); HEMOGLOBIN 7.7 g/dL (12.0-18.0)
--- NOTE | 2022-06-23 07:20 | NUR ---
ASSUMED CONTINUITY OF CARE. INITIAL ASSESSMENT DONE. KEEP COMFORTABLE ON BED. FALL PRECAUTION APPLIED. CALL LIGHT WITHIN REACH.
--- NOTE | 2022-06-23 07:32 | NUR ---
ENDORSE TO DAY SHIFT NURSE JAMIR FOR CONTINUITY OF CARE. PATIENT IS STABLE.
[2022-06-23 08:00] VITALS: BP 130/78
[2022-06-23] MEDS: GAUZE TP SCH ×2 (09:12→13:00)
[2022-06-23] MEDS: GABAPENTIN 300 MG CAP PO SCH ×2 (09:12→21:00)
[2022-06-23] MEDS: INSULIN LANTUS 100 UNITS/ML 10 ML VIAL SUBQ SCH (09:14)
--- NOTE | 2022-06-23 10:45 | NUR ---
RECEIVED HOME HEALTH FOR WOUND CARE ORDER. FAXED ALL PAPERWORK TO [facility]. WILL FOLLOW UP WHEN FAX CONFIRMATION COMES BACK. Addendum: 06/23/22 at 1545 by WILLIAM ALCANTAR CM RECEIVED CALL FROM [facility] WHO DENIED PATIENT. FAXED TO THE FOLLOWING HOME HEALTH AGENCIES:[employer], [employer], [employer] , AND 13 OTHER HOME HEALTH AGENCY. WILL FOLLOW UP WITH ACCEPTING AND DECLINING AGENCIES. Addendum: 06/23/22 at 1613 by WILLIAM ALCANTAR CM RECEIVED A CALL FROM [employer] PATIENT WAS ACCEPTED AND THEY WILL BE CONTACTING PATIENT/FAMILY DIRECTLY. NURSE BOWIE AND PATIENT AWARE OF THE ABOVE INFORMATION.
--- NOTE | 2022-06-23 10:45 | NUR ---
TAMMI -PRODUCTION PLANNER NURSE CAME AND SAID THAT PT. WOUND DRESSING HAS TO CHANGE EVERY OTHER DAY WHICH IS SCHEDULE TOMORROW 06/24/2022.
[2022-06-23] MEDS: NON ADHERENT DRESSING TP SCH (13:00)
--- NOTE | 2022-06-23 18:12 | NUR ---
PAGED DR. ROBERSON AND ASKED IF PT. WILL BE D/C SHEY. DR. ROBERSON PAGED BACK AND SAID THAT PT. WILL BE SEEN BY DR. GRIS KAT AND WILL BE D/C TOMORROW. INFORMED CHARGE NURSE QUITA YOUNGBLOOD.
--- NOTE | 2022-06-23 19:32 | NUR ---
REPORT GIVEN TO JOSE ELIAS YOUNGBLOOD. IN STABLE CONDITION.
--- NOTE | 2022-06-23 19:33 | NUR ---
RECEIVED ENDORSEMENT FROM DAY SHIFT NURSE FOR [id number] OF CARE. PT IS AWAKE AND ALERT, MOTHER IS AT BEDSIDE. IV SIDE ON RIGHT HAND IS INTACT AND PATENT.
[2022-06-23 20:00] VITALS: BP 123/67
--- NOTE | 2022-06-23 22:30 | NUR ---
PT VERBALIZED OF PAIN ON THE RIGHT AMPUTATED LEG BUT REFUSED PAIN MEDICATION.
--- NOTE | 2022-06-23 23:00 | NUR ---
PT IS SLEEPING SOUNDLY. NO FACIAL GRIMACING, NO SOB OR DISTRESS.
[2022-06-24 04:00] VITALS: BP 113/67
[2022-06-24] MEDS: MORPHINE SULFATE 2 MG/ML SYR IVP PRN (04:09)
--- NOTE | 2022-06-24 04:09 | NUR ---
PT COMPLAINTS OF PAIN ON RIGHT AMPUTATED LEG 11/28, PAIN MEDICATION MORPHINE ADMINISTERED ORDERED.
[2022-06-24] MEDS: AMPICILLIN 2,000 MG in NACL 0.9% 100 ML IV SCH ×3 (06:28)
[2022-06-24] MEDS: BLOOD GLUCOSE MONITORING 1 DEV DEV FS SCH (07:00)
--- NOTE | 2022-06-24 07:01 | NUR ---
BLOOD SUGAR CHECKED = 94. NO INSULIN COVERAGE. PT IS ON STABLE CONDITION.
[2022-06-24] MEDS: GABAPENTIN 300 MG CAP PO SCH (09:50)
[2022-06-24 12:51] VITALS: BP 126/86
[2022-06-25] MEDS ORDERED: LEVEMIR SUBQ (13:35)
[2022-06-25] MEDS ORDERED: INSU100V6 SQ (13:36)
== END 2022-06-24 13:35 | disposition home or self-care (01) | DRG 239 ==
LOC: MED 19:31 → MTU 21:26 → MMU 22:33 → MIC 06-17 16:45 → MMU 06-17 23:45
PROVIDERS: ADMIT Family Medicine; ATTEND Family Medicine
PROC: 0YBK0ZZ Excision of Right Ankle Region, Open Approach (ICD-10-PCS; 2022-06-17)
PROC: 0YBM0ZX Excision of Right Foot, Open Approach, Diagnostic (ICD-10-PCS; 2022-06-17)
PROC: 30233N1 Transfusion of Nonautologous Red Blood Cells into Peripheral Vein, Percutaneous Approach (ICD-10-PCS; 2022-06-17)
PROC: 0Y6M0Z0 Detachment at Right Foot, Complete, Open Approach (ICD-10-PCS; principal; 2022-06-17 14:25)
DX: E10.52 Type 1 diabetes mellitus with diabetic peripheral angiopathy with gangrene (principal); A48.0 Gas gangrene; M72.6 Necrotizing fasciitis; M86.8X7 Other osteomyelitis, ankle and foot; N17.9 Acute kidney failure, unspecified; E87.1 Hypo-osmolality and hyponatremia; E10.10 Type 1 diabetes mellitus with ketoacidosis without coma; E88.09 Other disorders of plasma-protein metabolism, not elsewhere classified; E10.65 Type 1 diabetes mellitus with hyperglycemia; E10.621 Type 1 diabetes mellitus with foot ulcer; L08.9 Local infection of the skin and subcutaneous tissue, unspecified; E83.42 Hypomagnesemia; Z20.822 Contact with and (suspected) exposure to COVID-19; D63.1 Anemia in chronic kidney disease; I12.9 Hypertensive chronic kidney disease with stage 1 through stage 4 chronic kidney disease, or unspecified chronic kidney disease; E10.22 Type 1 diabetes mellitus with diabetic chronic kidney disease; F15.10 Other stimulant abuse, uncomplicated; E10.69 Type 1 diabetes mellitus with other specified complication; N18.32 Chronic kidney disease, stage 3b; Z89.511 Acquired absence of right leg below knee; Z91.199 Patient's noncompliance with other medical treatment and regimen due to unspecified reason; Z79.4 Long term (current) use of insulin
CPT/HCPCS: 36415; 36430; 71045; 73630; 73700; 76770; 80048; 80053; 80202; 80299; 80305; 82948; 83605; 83735; 84100; 85018; 85025; 85610; 85730; 86886; 86900; 86901; 86920; 87040; 87070; 87075; 87081; 87186; 87205; 88307; 88311; 96374; 96375; 97110; 97530; 99285; J0290; J1170; J1815; J2001; J2270; J2405; J2543; J2704; J3010; J3370; J3372; J3490; J7030; J7060; P9016; Q0092

== ENCOUNTER 2023-06-13 11:13 | Day surgery (SDC) | payer OTHER ==
[~2023-06-13] VITALS: Ht 180.3 cm; Wt 108.9 kg
[~2023-06-13 11:13] MED LIST changes: +INSU100V11 SQ
[2023-06-13 11:57] LABS: BASOPHILS # (AUTO) 0.1 K/uL (0.00-0.22); LYMPHOCYTES # (AUTO) 0.8 K/uL (2.0-11.5); MONOCYTES # (AUTO) 1.4 K/uL (0.8-1.0); NEUTROPHILS # (AUTO) 4.2 K/uL (1.8-7.7)
[2023-06-13 12:00] LABS: BASOPHILS % (AUTO) 1.4 % (0.0-2.0); EOSINOPHILS # (AUTO) 0.1 K/uL (0-0.4); EOSINOPHILS % (AUTO) 1.9 % (0.0-4.0); HEMATOCRIT 23.2 % (36-52); HEMOGLOBIN 7.7 g/dL (12.0-18.0); LYMPHOCYTES % (AUTO) 11.7 % (20.5-51.1); MEAN CORPUSCULAR HEMOGLOBIN 28 pg (27-31); MEAN CORPUSCULAR HGB CONC 33 g/dL (33-37); MEAN CORPUSCULAR VOLUME 84.6 fL (80-94); MONOCYTES % (AUTO) 21.1 % (1.7-9.3); NEUTROPHILS % (AUTO) 63.9 % (42.2-75.2); PLATELET COUNT (AUTO) 232 K/uL (140-450); RED BLOOD CELL COUNT(AUTO) 2.75 MIL/uL (4.20-6.10); RED CELL DISTRIBUTION WIDTH 15.7 % (11.6-13.7); WHITE BLOOD COUNT (AUTO) 6.6 K/uL (4.8-10.8)
[2023-06-13 12:25] LABS: ALBUMIN 1.7 g/dL (3.4-5.0); ANION GAP 9.7 (8-16); CALCIUM 7.6 mg/dL (8.5-10.1); CARBON DIOXIDE 26.8 mmol/L (21-32); CREATININE 1.8 mg/dL (0.6-1.3); POTASSIUM 4.5 mmol/L (3.5-5.1); TOTAL BILIRUBIN 0.2 mg/dL (0.0-1.0); TOTAL PROTEIN, SERUM 6.2 g/dL (6.4-8.2)
[2023-06-13] MEDS ORDERED: HYDROGEN PEROXIDE 3% 240 ML BTL TP ONE (13:23)
[2023-06-13] MEDS ORDERED: ONDANSETRON 4 MG/2 ML VIAL ONE ×2 (13:30→13:43)
[2023-06-13] MEDS ORDERED: SEVOFLURANE 250 ML BTL INH ONE (13:30)
[2023-06-13] MEDS ORDERED: MIDAZOLAM 2 MG/2 ML VIAL ONE (13:35)
[2023-06-13] MEDS ORDERED: fentaNYL citrate 0.05 MG/ML VIAL ONE (13:36)
[2023-06-13] MEDS ORDERED: PROPOFOL 200 MG/20 ML VIAL IV ONE (13:43)
[2023-06-13] MEDS ORDERED: METOCLOPRAMIDE 10 MG/2 ML INJ VIAL ONE (13:43)
[2023-06-13] MEDS: BUPIVACAINE-MPF 0.25% 30 ML VIAL INJ ONE (14:10)
[2023-06-13] MEDS ORDERED: KETOROLAC 30 MG/ML VIAL ONE (14:11)
[2023-06-13] MEDS ORDERED: MEPERIDINE 25 MG/ML SYR IVP PRN (14:45)
[2023-06-13] MEDS ORDERED: diphenhydrAMINE 50 MG/ML VIAL IVP PRN (14:45)
[2023-06-13] MEDS ORDERED: ONDANSETRON 4 MG/2 ML VIAL IVP PRN (14:45)
[2023-06-13] MEDS ORDERED: NACL 0.9% 1,000 ML IV SCH (14:45)
[2023-06-13] MEDS ORDERED: HYDROmorphone 1 MG/ML AMP IVP PRN (14:45)
[2023-06-13] MEDS: ceFAZolin 1,000 MG VIAL ONE (15:09)
[2023-06-13] MEDS: LIDOCAINE 2% 1000 MG/50 ML VIAL INJ ONE (15:09)
== END 2023-06-13 17:05 | disposition home or self-care (01) ==
LOC: MDS 11:13 → MMU 11:14 → MDS 17:05
PROVIDERS: ATTEND Podiatrist Foot & Ankle Surgery
DX: L97.812 Non-pressure chronic ulcer of other part of right lower leg with fat layer exposed (principal); E11.9 Type 2 diabetes mellitus without complications; Z87.891 Personal history of nicotine dependence; Z79.899 Other long term (current) drug therapy; Z98.890 Other specified postprocedural states
CPT/HCPCS: 11043; 15275; 20240; 36415; 80053; 82948; 85025; 86886; 86900; 86901; 87070; 87075; 87186; 87205; J0690; J1885; J2001; J2250; J2405; J2704; J2765; J3010; J3490; J7060; Q4128